=== PATIENT | female | born 1955 | race African-American/Black ===

== ENCOUNTER 2016-08-08 11:06 | Emergency (ER) | payer MEDICARE, OTHER ==
[~2016-08-08 11:06] MED LIST: ANXIETY MED; CADUET 10 MG/101 TAB PO; FLEXERIL10 MG; GLUCOPHAGE XR500 MG PO; HCTZ PO; LISINOPRIL PO; LORTAB 7.5-5001 TAB; MEDROL PO; NAPROXEN; PREDNISONE1 MG PO; VICODIN 5/500 T1 TAB PO
[2016-08-08 12:08] LABS: BASOPHIL% 0.6 % (0-2.5); EOSINOPHIL# 0.1 X10e3 (0-0.7); EOSINOPHIL% 1.7 % (0.0-7.0); HEMATOCRIT 28.3 % (35.0-45.0); HEMOGLOBIN 9.2 gm/dL (12.0-16.0); LYMPHOCYTE# 1.6 X10e3 (1.0-3.5); LYMPHOCYTE% 26.6 % (17.0-45.0); MEAN CORPUSCULAR HEMOGLOBIN 30.2 PG (28-34); MEAN CORPUSCULAR HGB CONC 32.5 g/dL (30-36); MONOCYTE# 0.6 X10e3 (0-1.0); MONOCYTE% 9.5 % (3.0-12.0); NEUTROPHIL# 3.7 X10e3 (1.5-7.1); NEUTROPHIL% 61.6 % (40-75); PLATELET COUNT 265 X10e3 (140-420); RED BLOOD COUNT 3.04 X10e (3.90-5.30); RED CELL DISTRIBUTION WIDTH 14.1 % (11.0-15.5)
[2016-08-08 12:09] LABS: DIFF IND NO
[2016-08-08 12:27] LABS: BUN/CREATININE RATIO 22.27; CALCIUM SERUM 9.4 mg/dL (8.4-10.2); CREATININE SERUM 2.2 mg/dL (0.6-1.4); POTASSIUM 3.6 mmol/L (3.5-5.1)
== END 2016-08-08 14:20 | disposition home or self-care (01) ==
LOC: CED 11:06 → CFTX 11:06
PROVIDERS: Nurse Practitioner
DX: M79.672 Pain in left foot (principal); M79.671 Pain in right foot; D64.9 Anemia, unspecified; N28.9 Disorder of kidney and ureter, unspecified; M54.9 Dorsalgia, unspecified; E11.9 Type 2 diabetes mellitus without complications; I10 Essential (primary) hypertension; Z98.890 Other specified postprocedural states; Z79.899 Other long term (current) drug therapy
CPT/HCPCS: 36415; 80048; 85025; 99283